=== PATIENT | male | born 1960 | race Caucasian/White ===

== ENCOUNTER 2025-06-14 06:10 | Inpatient (IN) | payer MEDICARE, OTHER, SELFPAY ==
[2025-06-12 10:19] VITALS: BMI 18.9
--- NOTE | 2025-06-12 11:33 | CM ---
Met with Mr. Chan and his nephew in [facility]. He states prior to admission he resides alone in a mobile home with four steps to enter. He states his daughter is away at college and she will be home in July. He states prior to admission he was
independent with ambulation and adls. He states he does not have any DME in the home. He states he has a prescription plan. The discharge plan is to return home when medically stable.
We reviewed pre-op and post-op routines. We reviewed the shower instructions. He has the soap, and the written instructions. The plan is for Sternal Wire Removal on 06/14/25.
[2025-06-12 11:57] LABS: INR 1.09; PT 14.4 Sec (11.4-14.6)
[2025-06-12 12:01] LABS: Hematocrit 38.4 % (39.0-52.0); Hemoglobin 12.7 g/dL (13.0-18.0); Mean Corp Hgb Conc. 33.1 g/dL (33.0-37.0); Mean Corpuscular Volume 88.9 fL (80.0-94.0); Nucleated Red Blood Cells % 0 % (-); Platelet Count 222 10^3/uL (130-400); Red Cell Dist. Width 13.2 % (11.5-14.5)
[2025-06-12 12:19] LABS: Urine Character Clear (Clear)
[2025-06-12 12:35] LABS: Glycohemoglobin (HgbA1c) 5.7 % (4.0-5.9)
[2025-06-12 12:52] LABS: ALT (SGPT) 11 U/L (0-50); AST (SGOT) 26 U/L (17-59); Albumin 4.6 g/dl (3.5-5.0); Alkaline Phosphatase 41 U/L (38-126); Blood Urea Nitrogen 10 mg/dl (9-20); Calcium 9.3 mg/dl (8.4-10.2); Carbon Dioxide 32 mmol/L (22-30); Chloride 95 mmol/L (98-107); Estimated Creatinine Clearance 67 ml/min; Glucose 69 mg/dl (70-99); Potassium 4.5 mmol/L (3.5-5.1); Sodium 130 mmol/L (135-145); Total Protein 7.4 g/dl (6.3-8.2); eGFR > 60.00
[2025-06-14] VITALS (26 sets, daily range): BP systolic 98–185; BP diastolic 73–110; BMI 18.9
--- NOTE | 2025-06-14 06:32 | W.CVOR.SURPR ---
CVOR Surgeon Immed Pre Op
-
I have examined this patient prior to performance of the scheduled procedure.
The patient's condition is unchanged from the time of the dictated/written History and
Physical and the patient is able to undergo the scheduled procedure.
[2025-06-14] MEDS: NORMOSOL-R/PLASMALYTE-A 1000 IV (07:20)
--- NOTE | 2025-06-14 08:59 | W.IMMPOSTOP ---
Addendum entered and electronically signed by Tyrese Zaldivar MD 06/14/25 09:14:
[id number]
Original Note:
Surgical Immed Post Op Note
-
CARDIAC SURGERY OPERATIVE NOTE:
Preoperative Dx:
S/P prior CABG x 2 (2008)
Protruding sternal wire x 1
Prominent/painful remaining sternal wires
Postoperative Dx:
Same
Procedures:
Removal of 7 sternal wires via 2 incisions (4.5cm and 6cm)
Surgeon:
Tyrese Zaldivar M.D.
Community Health Promoter:
Germaine Bynum P.A.-C.
Anesthesia:
GET; Nain Ruiz M.D. and Mark Vizcaino C.R.N.A. - extubated postoperatively
Findings:
Mr. Chan is a very skinny gentleman - his 6th sternal wire had initially become prominent and subsequently became protuberant; he was placed on ABX
There was irritation, but no signs of active infection around this wire (minor surrounding erythema, no purulence, no significant induration)
Given his body habitus, his remaining wires were all also quite prominent and caused discomfort
All wire were removed via 2 separate incisions, the more cephalad incision was 4.5cm and the more caudal was 6.0cm)
The incisions were irrigated w/ antibiotic solution and closed in two layers w/ deep interrupted 2-0 vicryl and running 4-0 vicryl, dermabond placed
20mL of 0.25% Bupivacaine injected for postoperative analgesia
Complications:
None
Condition:
Stable to recovery
Postoperative Plan:
Check CXR
OK for D/C home once criteria met assuming appropriate pain control
Continue PO ABX x 1 week
F/U in outpatient office in 3-4 weeks for wound check
[2025-06-14] MEDS: DILAUDID 0.5 MG IV ×2 (09:28→10:08)
--- NOTE | 2025-06-14 11:21 | SUR.OPER ---
Pt received from PACU at 1140 awake, alert and oriented. O2 on at 2LNC, sat 99%. Sternal wounds STARLA, approximated with surgical glue intact. Pt having mild pain on arrival when not moving. SR, rate in the 70's to 80's.
[2025-06-14] MEDS: KEFLEX 500 MG PO ×3 (12:12→22:33)
[2025-06-14] MEDS: ROXICODONE 5 MG PO ×2 (12:19→20:14)
[2025-06-14] MEDS: LIPITOR 10 MG PO (17:15)
[2025-06-14] MEDS: SYMBICORT 160/4.5 MCG INHALER 2 PUFF INH (20:03)
[2025-06-14] MEDS: VIBRAMYCIN 100 MG PO (20:13)
[2025-06-14] MEDS: ASPIR LOW (ENTERIC COATED) 81 MG PO (20:13)
[2025-06-14] MEDS: ZANAFLEX 4 MG PO (20:13)
[2025-06-14] MEDS: KLONOPIN 0.5 MG PO (20:14)
[2025-06-14] MEDS: ZOFRAN 4 MG IV (22:38)
--- NOTE | 2025-06-15 01:01 | PTCARENOTE ---
Received pt at change of shift OOB in chair. SR on tele, HR 60's-80's. pt denies any CP or SOB at this time. Sternal incision intact and STARLA. pt c/o pain at sternal incision 02/08. PRN Farida administered with slight relief. pt reports nausea, PRN
Zofran administered per request--see MAR. Updated pt on plan of care. Encouraged pt to call RN for assistance ambulating or w/ any questions/concerns. Call vargas within reach.
[2025-06-15 03:44] VITALS: BP 121/76
[2025-06-15] MEDS: BenGay-Like 1 APPLIC TOPICAL (04:00)
[2025-06-15] MEDS: ROXICODONE 5 MG PO (04:54)
[2025-06-15 06:49] VITALS: BP 129/84
[2025-06-15] MEDS: NON-FORMULARY ITEM 2 INH INH (07:41)
--- NOTE | 2025-06-15 07:49 | W.PN.CT ---
Today's Communication / Plan
-
-pod #1
-no issues overnight
-Tylenol and Farida for pain control
-continue PO ABX x 1 week
-d/c home
- F/U in outpatient office in 3-4 weeks for wound check
Assessment / Plan
-
- s/p Removal of 7 sternal wires via 2 incisions (4.5cm and 6cm) on 06/14/[address] Zaldivar, pod #1
- S/P prior CABG x 2 (2008)
- Protruding sternal wire x 1
- Prominent/painful remaining sternal wires
Discussed patient care with: Nursing and Care Team
Subjective
-
Date of Service: June 15, 2025
Objective Data
-
Lab Results
06/12/25 10:30
06/12/25 10:30
PT 14.4 Sec (11.4-14.6) 06/12/25 10:30
INR 1.09 06/12/25 10:30
Vital Signs
Vital Signs
Temp Pulse Resp BP Pulse Ox
98.0 F 78 18 129/84 96
06/15/25 06:51 06/15/25 07:30 06/15/25 06:51 06/15/25 06:49 06/15/25 07:45
CT Intake/Output/Weight
06/14/25 06/15/25 06/15/25
18:59 06:59 18:59
Intake Total 450 / 690 240 / 690
Output Total 1025 / 2550 1525 / 2550
Balance -575 / -1860 -1285 / -1860
SaO2: 96
Physical Exam
-
General: Awake and AOx3
Cardiovascular: Regular rate & rhythm and No Murmurs
Respiratory: Clear
Sternum: Stable
Incision: Clean, Dry and Intact
Data Reviewed
-
Lab Results: Results Reviewed
Medications: Active Meds Reviewed
Chest X-Ray: Report Reviewed and Image Reviewed
ECG: Report Reviewed and Image Reviewed
[2025-06-15] MEDS: VIBRAMYCIN 100 MG PO (07:57)
[2025-06-15] MEDS: ASPIR LOW (ENTERIC COATED) 81 MG PO (07:57)
[2025-06-15] MEDS: FLOMAX 0.4 MG PO (07:57)
[2025-06-15] MEDS: KLONOPIN 0.5 MG PO (07:57)
[2025-06-15] MEDS: ZANAFLEX 4 MG PO (07:57)
[2025-06-15] MEDS: COLACE 100 MG PO (07:58)
[2025-06-15] MEDS: KEFLEX 500 MG PO ×2 (07:58→12:21)
--- NOTE | 2025-06-15 08:20 | W.DCSUMMARY ---
Addendum entered and electronically signed by DAO Rodriguez 06/18/25 16:43:
CDI QUERY
Severe protein calorie malnutrition
Original Note:
Discharge Summary
Discharge Data
Date of Admission: 06/14/25
Date of Discharge: 06/15/25
-
Pending Results: No
Hospital Course
Primary care physician: Christy Lugo
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
Inpatient consultants: none
Procedures:
1. sternal wire removal
Primary Diagnosis:
1. sternal wire protrusion
Secondary Diagnoses:
1. Hx RI/CAD- S/P prior CABG x 2 (2008)
2. HTN
3. HLD
4. BPH
5. COPD (former tobacco)
6. Degenerative disc disease s/p cervical spine surgery
HPI: 65-year-old male was electively admitted for sternal wire removal due to sternal wire protrusion status post CABG from 2008
Hospital course: Patient seen the operating room and underwent sternal wire removal (7 wires) by Dr. Tyrese Zaldivar. Patient was admitted to IV for pain management. He will continue with 1 week of p.o. antibiotics (cephalexin and doxycycline).
Patient have stable night and will be discharged with oxycodone 10 tablets for sternal pain. He is instructed to call the office for increasing redness around incision, sternal drainage, persistent fever more than 101F.
Home medication changes:
NEW: Oxycodone, Cephalexin, doxycycline
Discharge Plan
-
Patient Disposition: Home (Routine Discharge)
Discharge Diagnosis/Procedures: Protruding sternal wires s/p Sternal Wire Removal by Dr. Tyrese Zaldivar on 06/14/25
Condition: Good
Diet: No restrictions
Activity: No restrictions
Driving Restrictions: May drive when no longer taking oxycodone.
Bathing Restrictions: OK to Shower
Wound Care: Shower daily with soap and water.
No lotions, creams, or powders on procedural site.
Referrals:
Christy Lugo DO [Family Provider, Family Practice]
Referral Note: Please make an appointment in four to six weeks.
Tyrese Zaldivar MD [Active, Cardiac Surgery] - 07/03/25 2:30 pm
Prescriptions:
New
acetaminophen 325 mg Tablet
650 mg PO Q6HPRN PRN (Reason: HADDAD, mild pain, or fever >101F) Qty: 0 0RF
doxycycline hyclate 100 mg Capsule
100 mg PO BID 7 Days Qty: 14 0RF
cephalexin 500 mg Capsule
500 mg PO QID 7 Days Qty: 28 0RF
oxycodone 5 mg Tablet
5 mg PO Q4HPRN PRN (Reason: severe pain) Qty: 10 0RF
Continued
nitroglycerin 0.4 mg Tablet, Sublingual
0.4 mg SUBLINGUAL Q5-15M PRN (Reason: chest pain)
tizanidine 4 mg Tablet
4 mg PO BID Qty: 0 0RF
clonazepam [Klonopin] 0.5 mg Tablet
0.5 mg PO BID Qty: 0 0RF
lovastatin 40 mg Tablet
40 mg PO QPM Qty: 0 0RF
tamsulosin [Flomax] 0.4 mg Capsule
0.4 mg PO DAILY Qty: 0 0RF
aspirin 81 mg Tablet
81 mg PO BID Qty: 0 0RF
Breztri Aerosphere 160-9-4.8 mcg/actuation Hfa Aerosol Inhaler
2 inh INHALATION BID Qty: 0 0RF
Discontinued
doxycycline monohydrate 100 mg Tablet
100 mg PO BID
cephalexin 500 mg Tablet
500 mg PO QID
Discharge Orders:
Discharge Patient (As Directed); Ordered 06/15/25
Ordered By: Rosa Maria Matos
Care Plan Goals
Care Plan Goals:
Problem: Readiness for enhanced knowledge related to diagnosis and treatment plan
Goal: Understand your diagnosis and treatment plan needs, including medications if applicable.
Instructions: Know your diagnosis, underlying causes and treatment plan options, including medications if applicable. Consult with your health care team to learn about your diagnosis and treatment plan, including medications if applicable.
Discharge Date and Time
Print Language: TUNISIAN
[2025-06-15] MEDS: FLUZONE (6 mos+) 2025-2026 FORMULA 0.5 ML IM (09:45)
[2025-06-15 10:58] VITALS: BP 127/82
--- NOTE | 2025-06-15 11:30 | PTCARENOTE ---
Assumed care. Patient received awake and alert sitting up in bed. He is without apparent signs of distress but appears uncomfortable. He c/o sternal pain. Prn Tylenol given, see MAR. See fund accountant charted on worklist flowsheet. SR on CM. Patient
declined ordering lunch tray due to pending discharge. Belongings gathered. Patient assisted to dress in street clothes. Call vargas within reach.
[2025-06-15 12:01] VITALS: BMI 18.9
[2025-06-15] MEDS: TYLENOL 650 MG PO (12:22)
--- NOTE | 2025-06-15 13:00 | PTCARENOTE ---
IV site discontinued. Discharge instructions given, verbalized understanding. Food bag given. Information reviewed regarding food pantries.
--- NOTE | 2025-06-15 13:20 | PTCARENOTE ---
Patient discharged via wheelchair accompanied by PCT. Belongings with patient. Wearing eyeglasses and has cell phone with him.
--- NOTE | 2025-06-18 15:22 | PN.CDI ---
CDI
- -
CDI:
Physician Documentation Request
Admit Date: 06/14/25 06:10
Dear Rosa Maria DC,
Patient admitted with sternal wire protrusion s/p sternal wire removal.
06/15 Nutrition note, 'Patient states that his appetite has not been good for the past 4 months. He states that he used to weigh 165 lbs 6 months ago. Today he weighs 124 lbs. This is a 24.9% BW loss over the past 6 months (significant)....Current
BW: (06/12) 124 lbs 5.451 oz BMI: 18.9 (normal). No weight history.Patient meets AND and ASPEN criteria for severe protein calorie malnutrition of chronic disease due to a loss of more than 10% BW over 6 months and less than 75% of estimated
nutrition needs met for more than 1 month.
Please provide in your note the diagnosis associated with the above nutritional findings and your assessment:
Severe protein calorie malnutrition
Other (please specify)
[place] Criteria ([facility] Hospitalist 2017)
2 or more criteria must be present for either
non severe or severe malnutrition
Note that the criteria differs related to the
presence of an acute or chronic illness
Chronic Illness
Energy Intake Non Severe: <75% for >1 month
Severe: <75% for >1 month
Weight Loss Non Severe: 5% over 1 month
7.5% over 3 months
10% over 6 months
20% over 1 year
Severe: >5% over 1 month
>7.5% over 3 months
>10% over 6 months
>20% over 1 year
Body Fat Non Severe: Mild Loss
Severe: Severe Loss
Muscle Mass Non Severe: Mild Loss
Severe: Severe Loss
Fluid Accumulation Non Severe: Mild Accumulation
Severe: Moderate to severe
accumulation
Reduced Extrusion Operator Strength Non Severe: N/A
Severe: Measurably reduced
Use of terms such as suspected, likely, concern for, or probable (associated with a specific diagnosis that is being evaluated, monitored, or treated as if it exists) are acceptable and can be coded in the inpatient setting, when documented at the
time of discharge.
Thank you,
Lillian MCDOWELL,RN,CCDS
CDI Specialist
Available via [place] text
Please use your independent medical judgment in providing your response.
== END 2025-06-15 13:33 | disposition home or self-care (01) | DRG 907 ==
LOC: IVU 06:10
PROVIDERS: ADMITTING PHYSICIAN Thoracic Surgery (Cardiothoracic Vascular Surgery); FAMILY PHYSICIAN Family Medicine
PROC: 0PC00ZZ Extirpation of Matter from Sternum, Open Approach (ICD-10-PCS; 2025-06-14)
PROC: 3E02340 Introduction of Influenza Vaccine into Muscle, Percutaneous Approach (ICD-10-PCS; 2025-06-15)
DX: T81.89XA Other complications of procedures, not elsewhere classified, initial encounter (principal); E43 Unspecified severe protein-calorie malnutrition; Z68.1 Body mass index [BMI] 19.9 or less, adult; Y83.8 Other surgical procedures as the cause of abnormal reaction of the patient, or of later complication, without mention of misadventure at the time of the procedure; E78.5 Hyperlipidemia, unspecified; I10 Essential (primary) hypertension; J44.9 Chronic obstructive pulmonary disease, unspecified; N40.0 Benign prostatic hyperplasia without lower urinary tract symptoms; Z95.1 Presence of aortocoronary bypass graft; Z87.891 Personal history of nicotine dependence; Z23 Encounter for immunization
CPT/HCPCS: 36415; 71045; 80053; 81003; 82248; 83036; 85025; 85610; 86850; 86900; 86901; 87070; 90656; 93005; 94640; G0008